=== PATIENT | female | born 1995 | race Caucasian/White ===

== ENCOUNTER 2016-12-22 11:31 | Emergency (ER) | payer MEDICAID ==
[2016-12-22 11:32] VITALS: BMI 27.3
[2016-12-22 11:42] VITALS: PULSE 74; RESP 20; O2SAT 98
--- NOTE | 2016-12-22 12:29 | C.PDOC ---
History Of Present Illness Patient is a 21 year old female who was referred by Dr. Galeano for a left neck mass and swelling for the past 2 days. Patient is status post tonsillectomy one month ago, patient has been fine until onset of mass. Patient reports pain to area when swallowing. Denies any nausea, vomiting, or diarrhea. Time Seen by Provider: 12/22/16 12:23 Chief Complaint (Nursing): Medical Clearance History Per: Patient Onset/Duration Of Symptoms: Days (2) Current Symptoms Are (Timing): Still Present Past Medical History Reviewed: Historical Data, Nursing Documentation, Vital Signs Vital Signs: Last Vital Signs Temp 98.1 F 12/22/16 11:41 Pulse 74 12/22/16 11:41 Resp 20 12/22/16 11:41 BP 125/79 12/22/16 11:41 Pulse Ox 98 12/22/16 13:16 - Medical History PMH: Asthma (HOSPITALIZE IN 2016-PT. NOT SURE WHEN..), Bronchitis, Pneumonia, Seizures (LAST EPISODE November,-NOT HOSPITALIZED) Surgical History: Tonsillectomy (October,) Family History: States: Unknown Family Hx - Social History Hx Alcohol Use: No Hx Substance Use: No - Immunization History Hx Tetanus Toxoid Vaccination: No Hx Influenza Vaccination: Yes Hx Pneumococcal Vaccination: No Review Of Systems Except As Marked, All Systems Reviewed And Found Negative. Gastrointestinal: Negative for: Nausea, Vomiting, Diarrhea Musculoskeletal: Positive for: Neck Pain (Left) Physical Exam - Physical Exam Appears: Well, Non-toxic Skin: Normal Color, Warm, Dry Head: Atraumatic, Normacephalic Oral Mucosa: Moist Throat: No Drooling Neck: Paracervical Tenderness (Lateral left mid neck tissue), Supple, Other ( Lateral left mid neck tissue swelling) Chest: Symmetrical Cardiovascular: Rhythm Regular, No Murmur Respiratory: Other (No acute respiratory distress. Patient speaking in complete sentences. ) Gastrointestinal/Abdominal: Soft, No Tenderness Back: No CVA Tenderness Neurological/Psych: Oriented x3, Normal Speech (Voice), Normal Cognition ED Course And Treatment - Laboratory Results Result Diagrams: 12/22/16 12:48 12/22/16 12:48 O2 Sat by Pulse Oximetry: 98 (Room air) Pulse Ox Interpretation: Normal Progress Note: Neck soft tissue CT w/ contrast ordered. IV fluids administered. Progress - Re-Evaluation Re-evaluation Note: 12/22/16 16:[address] D/W DR GLAEANO: DC W AMOXIL, MUSCLE RELAX, WARM COMPRESS, FU 1 WEEK - Data Reviewed Data Reviewed: Lab, Diagnostic imaging - Continuity of Care Discussed patient case with:: Patient Discussed pt. case with senior analytic consultant/specialty: Otolaryngology Disposition Counseled Patient/Family Regarding: Studies Performed, Diagnosis, Need For Followup, Rx Given - Disposition Referrals: Mark Galeano MD [Staff Provider] - Disposition: HOME/ ROUTINE Disposition Time: 16:18 Condition: IMPROVED Additional Instructions: APPLY WARM COMPRESS TO AREA. TAKE MEDICINES PRESCRIBED. FOLLOW UP W DR GALEANO IN 1 WEEK Prescriptions: Amoxicillin [Amoxil 500 mg Cap] 500 mg PO BID #14 cap Cyclobenzaprine [Flexeril] 10 mg PO TID #15 tab Instructions: Muscle Spasm (ED) Forms: Work Excuse - Clinical Impression Clinical Impression: Neck pain - Scribe Statement The provider has reviewed the documentation as recorded by the Scriblorenzo Medeiros All medical record entries made by the Leahiblorenzo were at my direction and personally dictated by me. I have reviewed the chart and agree that the record accurately reflects my personal performance of the history, physical exam, medical decision making, and the department course for this patient. I have also personally directed, reviewed, and agree with the discharge instructions and disposition.
[2016-12-22] MEDS ORDERED: Sodium Chloride 0.9% 1,000 ML IV SCH (12:30)
[2016-12-22 12:54] LABS: BASO % 0.5 % (0.0-2.0); EOS # 0.1 K/uL (0.0-0.7); HEMATOCRIT 44.1 % (34.0-47.0); LYMPH # 2.5 K/uL (1.0-4.3); LYMPH % 33.3 % (20.0-40.0); MEAN CELL VOLUME 87.1 fL (81.0-99.0); MEAN CORPUSCULAR HGB CONC 33.2 g/dL (33.0-37.0); MEAN PLATELET VOLUME 7.9 fL (7.2-11.7); MONO # 0.4 K/uL (0.0-0.8); MONO % 5.9 % (0.0-10.0); RED CELL DISTRIBUTION WIDTH 13.5 % (11.5-14.5); WHITE BLOOD COUNT 7.6 K/uL (4.8-10.8)
[2016-12-22 12:59] LABS: CHLORIDE 103 mmol/L (98-107)
[2016-12-22 13:00] LABS: POTASSIUM 4.3 mmol/L (3.6-5.2); SODIUM 141 mmol/L (132-148)
[2016-12-22 13:02] LABS: GFR AFRICAN-AMERICAN > 60
[2016-12-22 13:03] LABS: BLOOD UREA NITROGEN 13 mg/dL (7-17); CALCIUM 9.5 mg/dl (8.6-10.4); CARBON DIOXIDE 24 mmol/L (22-30); GLUCOSE,RANDOM 100 mg/dL (65-105)
[2016-12-22] MEDS ORDERED: Iodixanol 320 mg/ml 150 ml Bottle IV ONE (15:26)
--- NOTE | 2016-12-22 16:14 | CT ---
PROCEDURE: CT NECK WITH CONTRAST HISTORY: NECK SWELLING RO ABSCESS HO TONSILLECTOMY COMPARISON: None TECHNIQUE: CT of the neck with intravenous contrast. Coronal and sagittal reformats generated. Intravenous contrast dose: 100 mL Visipaque. Radiation dose: DLP 338.32 mGy-cm This CT exam was performed using one or more of the following dose reduction techniques: Automated exposure control, adjustment of the mA and/or kV according to patient size, and/or use of iterative reconstruction technique. FINDINGS: At the site of BB marker in the left lateral neck, there is no evidence of mass, lymphadenopathy, or lipoma. The left sternocleidomastoid muscle is normal in appearance. NASOPHARYNX: Normal in appearance. No mass or abnormal enhancement. SUPRAHYOID NECK: There is no mass or abnormal enhancement in the oropharynx, oral cavity, parapharyngeal space and retropharyngeal space. INFRAHYOID NECK: There is no mass or abnormal enhancement in the larynx, hypopharynx, and supraglottic space. Vocal cords intact. MASS: None. GLANDS: Parotid and submandibular glands unremarkable. Normal size thyroid gland, without nodule. LYMPH NODES: Normal. No lymphadenopathy. CERVICAL SPINE: No fracture or focal lesion. Normal in appearance. VASCULAR STRUCTURES: Normal caliber and enhancement. OTHER FINDINGS: There is minimal ill-defined enhancing soft tissue in the superior mediastinum likely thymic tissue. IMPRESSION: No CT abnormality at the site of clinically palpable lump in the left lateral neck. No evidence of mass or lymphadenopathy.
[2016-12-22 16:45] VITALS: BP 124/74; TEMP 97.4
== END 2016-12-22 16:45 | disposition home or self-care (01) ==
LOC: C.ER 11:31
DX: M54.2 Cervicalgia (principal); R22.1 Localized swelling, mass and lump, neck
CPT/HCPCS: 70491; 80048; 85025; 99283; J7040; Q9965

== ENCOUNTER 2017-07-04 11:00 | Emergency (ER) | payer MEDICAID ==
[2017-07-04 11:23] VITALS: BMI 18.1
[2017-07-04 11:24] VITALS: RESP 18
[2017-07-04] MEDS ORDERED: Sodium Chloride 0.9% 1,000 ML IV ONE (11:32)
--- NOTE | 2017-07-04 11:58 | C.PDOC ---
History Of Present Illness 22 y/o female presents to ED for evaluation of lower abdominal and pelvic pain since last night. Pt states that pain is sharp, stabbing and constant in nature , and worsens when coughing. Pt admits to having history of constipation, last BM was 4 days ago. Otherwise, she denies dysuria, hematuria, vaginal bleeding, vaginal discharge, vomiting, diarrhea, or fever. Time Seen by Provider: 07/04/17 11:11 Chief Complaint (Nursing): Abdominal Pain History Per: Patient History/Exam Limitations: no limitations Onset/Duration Of Symptoms: Days (1), Persistent Current Symptoms Are (Timing): Still Present Severity: Moderate Location Of Pain/Discomfort: Suprapubic Radiation Of Pain To:: None Quality Of Discomfort: Sharp Associated Symptoms: Constipation. denies: Fever, Chills, Nausea, Vomiting, Diarrhea, Loss Of Appetite, Back Pain, Chest Pain, Urinary Symptoms Exacerbating Factors: Cough Alleviating Factors: None Last Bowel Movement: Days Ago (4) Additional History Per: Patient Abnormal Vaginal Bleeding: No Past Medical History Reviewed: Historical Data, Nursing Documentation, Vital Signs Vital Signs: Last Vital Signs Temp 98.3 F 07/04/17 14:37 Pulse 64 07/04/17 14:37 Resp 18 07/04/17 14:37 BP 123/83 07/04/17 14:37 Pulse Ox 99 07/04/17 14:37 - Medical History PMH: Asthma (HOSPITALIZE IN 2016-PT. NOT SURE WHEN..), Bronchitis, Pneumonia, Seizures (LAST EPISODE November,-NOT HOSPITALIZED) Surgical History: Tonsillectomy (October,) Family History: States: No Known Family Hx - Social History Hx Alcohol Use: No Hx Substance Use: No - Immunization History Hx Tetanus Toxoid Vaccination: No Hx Influenza Vaccination: Yes Hx Pneumococcal Vaccination: No Review Of Systems Except As Marked, All Systems Reviewed And Found Negative. Constitutional: Negative for: Fever, Chills Cardiovascular: Negative for: Chest Pain, Palpitations Respiratory: Negative for: Shortness of Breath Gastrointestinal: Positive for: Abdominal Pain, Constipation. Negative for: Nausea, Vomiting, Diarrhea Genitourinary: Positive for: Pelvic Pain. Negative for: Dysuria, Frequency, Hematuria, Vaginal Discharge, Vaginal Bleeding Musculoskeletal: Negative for: Back Pain Physical Exam - Physical Exam Appears: Well, Non-toxic, No Acute Distress Skin: Normal Color, Warm, Dry, No Rash Head: Normacephalic Eye(s): bilateral: Normal Inspection Oral Mucosa: Moist Neck: Supple Cardiovascular: Rhythm Regular, No Murmur Respiratory: Normal Breath Sounds, No Rales, No Rhonchi, No Wheezing Gastrointestinal/Abdominal: Bowel Sounds, Soft, Tenderness (mild diffuse TTP greatest at suprapubic area), No Guarding, No Rebound, Other ((-)McBurney's) Back: Normal Inspection, No CVA Tenderness Neurological/Psych: Oriented x3 ED Course And Treatment - Laboratory Results Result Diagrams: 07/04/17 12:06 07/04/17 12:06 O2 Sat by Pulse Oximetry: 96 (RA) Pulse Ox Interpretation: Normal - Other Rad obstructive series X-Ray: Interpreted by Me, Viewed By Me (no air fluid levels, (+) large amount of stool ) Progress Note: Blood work, UA, Upreg, obstructive series x-ray ordered and reviewed. Patient was given IV fluids. Patient has h/o abdominal or pelvic surgeries. Obstructive series shows large amount of stool, no air fluid levels. Patient given PO colace, PO magnesium citrate, PO zofran. Reevaluation Time: 14:15 Reassessment Condition: Improved (Patient reassessed, is resting comfortably and states she feels better. On exam, abdomen is soft and nontender. Blood work, UA, Upreg WNL. Rxs given for Colace, Magnesium citrate and Zofran ODT. She was instructed to increase PO fluids and fiber, and to follow up with PMD/ clinic in 1-2 days. She understands she should return to ED if symptoms worsen. ) Disposition Counseled Patient/Family Regarding: Studies Performed, Diagnosis, Need For Followup, Rx Given - Disposition Referrals: Salma Bell MD [Non-Staff] - Disposition: HOME/ ROUTINE Disposition Time: 14:20 Condition: STABLE Additional Instructions: FOLLOW UP WITH YOUR DOCTOR IN 1-2 DAYS DRINK PLENTY OF FLUIDS, AND INCREASE FIBER IN YOUR DIET RETURN TO ER IF SYMPTOMS WORSEN Prescriptions: Docusate [Colace] 100 mg PO DAILY #30 cap Magnesium Citrate [Citrate of Mag] 300 ml PO ONCE PRN #1 bottle PRN Reason: Constipation Ondansetron [Zofran Odt] 4 mg PO Q8 PRN #10 odt PRN Reason: Nausea/Vomiting Instructions: Constipation (ED), High Fiber Diet (ED) Forms: [employer] (Serbian) Print Language: FAROESE - POA Present On Arrival: None - Clinical Impression Clinical Impression: Constipation - Scribe Statement The provider has reviewed the documentation as recorded by the Leahiblorenzo Ibarra All medical record entries made by the Leahibe were at my direction and personally dictated by me. I have reviewed the chart and agree that the record accurately reflects my personal performance of the history, physical exam, medical decision making, and the department course for this patient. I have also personally directed, reviewed, and agree with the discharge instructions and disposition.
[2017-07-04 12:15] LABS: BASO % 0.4 % (0.0-2.0); EOS # 0.1 K/uL (0.0-0.7); EOS % 2.3 % (0.0-4.0); HEMATOCRIT 43.3 % (34.0-47.0); LYMPH # 2.6 K/uL (1.0-4.3); LYMPH % 39.4 % (20.0-40.0); MEAN CELL VOLUME 86.4 fL (81.0-99.0); MEAN CORPUSCULAR HEMOGLOBIN 29.7 pg (27.0-31.0); MEAN CORPUSCULAR HGB CONC 34.4 g/dL (33.0-37.0); MEAN PLATELET VOLUME 7.7 fL (7.2-11.7); MONO # 0.5 K/uL (0.0-0.8); MONO % 7.4 % (0.0-10.0); WHITE BLOOD COUNT 6.5 K/uL (4.8-10.8)
[2017-07-04 12:25] LABS: CHLORIDE 103 mmol/L (98-107); SODIUM 137 mmol/L (132-148)
[2017-07-04 12:27] LABS: AST/SGOT 24 U/L (14-36); BILIRUBIN,TOTAL 0.6 mg/dL (0.2-1.3); CARBON DIOXIDE 23 mmol/L (22-30); GFR AFRICAN-AMERICAN > 60
[2017-07-04 12:28] LABS: ALB/GLOB RATIO 1.6 (1.0-2.1); ALKALINE PHOSPHATASE 38 U/L (38-126); ALT/SGPT 26 U/L (9-52); BLOOD UREA NITROGEN 14 mg/dL (7-17); CALCIUM 9.1 mg/dl (8.6-10.4); GLUCOSE,RANDOM 81 mg/dL (65-105); TOTAL PROTEIN 7.1 g/dL (6.3-8.3)
[2017-07-04 12:38] LABS: URINE BACTERIA RARE (<OCC); URINE BILIRUBIN NEGATIVE (NEGATIVE); URINE BLOOD 2+ (NEGATIVE); URINE COLOR Yellow (YELLOW); URINE GLUCOSE (UA) NORMAL (Normal); URINE KETONE NEGATIVE (NEGATIVE); URINE LEUKOCYTE ESTERASE NEG Leu/uL (Negative); URINE PROTEIN NEGATIVE (NEGATIVE); URINE UROBILINOGEN NORMAL mg/dL (0.2-1.0); WBC URINE 1 /hpf (0-5)
[2017-07-04 12:44] LABS: RBC URINE 3 /hpf (0-3)
[2017-07-04] MEDS ORDERED: Magnesium Citrate Oral SOL (300 ml) PO ONE (12:47)
[2017-07-04] MEDS ORDERED: Magnesium Citrate Oral SOL (300 ml) ONE (12:55)
--- NOTE | 2017-07-04 12:58 | RAD ---
Abdomen four views History: Abdominal pain. Constipation. Comparison: None available. Findings: Lung hernandez are clear. Heart size within normal limits. Bibasilar breast and nipple shadows. Moderate fecal retention in the colon. No evidence of gross bowel obstruction. Impression: Moderate fecal retention in the colon.
[2017-07-04 14:39] VITALS: BP 123/83; PULSE 64; TEMP 98.3
[2017-07-05 11:03] VITALS: O2SAT 96
== END 2017-07-04 14:47 | disposition home or self-care (01) ==
LOC: C.ER 11:00
DX: K59.00 Constipation, unspecified (principal)
CPT/HCPCS: 74022; 80053; 81001; 83690; 84703; 85025; 96360; 99285; J7040